=== PATIENT | female | born 1990 | race Two or more races ===

== ENCOUNTER → 2021-07-30 | Outpatient (CLI) | payer OTHER ==
[~2021-07-30] MED LIST: KEFLEX500 MG PO; NAPROXEN SODIU550 MG PO
== END | disposition home or self-care (01) ==
LOC: RX STUDY 09:36
PROVIDERS: ATTEND Obstetrics & Gynecology
DX: N94.89 Other specified conditions associated with female genital organs and menstrual cycle (principal)

== ENCOUNTER 2021-12-31 14:09 | Outpatient (CLI) | payer OTHER | END 2021-12-31 15:40 | disposition home or self-care (01) | LOC: PRENATAL 14:09 | PROVIDERS: ATTEND Obstetrics & Gynecology Maternal & Fetal Medicine | DX: O24.419 Gestational diabetes mellitus in pregnancy, unspecified control (principal) ==